=== PATIENT | female | born 1960 | race Two or more races ===

== ENCOUNTER 2023-03-16 15:23 | Emergency (ER) | payer OTHER ==
[2023-03-16 15:35] VITALS: BMI 30.5
[2023-03-16] MEDS ORDERED: ACETAMINOPHEN 500 MG TABLET (FP) PO ONE (15:40)
[2023-03-16] MEDS ORDERED: ACETAMINOPHEN 325 MG TABLET (FP) ONE (15:41)
[2023-03-16 18:08] VITALS: BP 130/70; PULSE 91; RESP 14; TEMP 100.4
[2023-03-16 18:36] LABS: THROAT:GRP A STREP DETECTED (NOTDETECTED)
== END 2023-03-16 18:45 | disposition home or self-care (01) ==
LOC: JERFT 15:23
DX: R51.9 Headache, unspecified (principal); R50.9 Fever, unspecified; M79.10 Myalgia, unspecified site; B34.9 Viral infection, unspecified; Z20.822 Contact with and (suspected) exposure to COVID-19
CPT/HCPCS: 0241U-QW; 87070; 87077; 87651; 99283-25